=== PATIENT | female | born 1955 | race Caucasian/White ===

== ENCOUNTER 2017-01-28 07:28 | Day surgery (SDC) | payer BC ==
[2017-01-27 17:56] VITALS: BMI 27.4
[2017-01-28] MEDS ORDERED: PROPOFOL 20 ML ONE ×2 (07:39)
[2017-01-28 08:59] VITALS: TEMP 97.7
[2017-01-28 09:52] VITALS: BP 93/56; PULSE 66
--- NOTE | 2017-02-01 09:27 | PATH ---
Surgical Pathology Report Patient Name: KELLY FONSECA [facility]. Rec. #: [id number] /Age/Gender: 1955 (Age: 61) / F Account: [id number] Location: [facility]-ENDOSCOPY Taken: 01/28/2017 Received: 01/28/2017 Reported: 02/01/2017 Physicians: Benja Thakkar M.D. Specimen(s) Received BX HEPATIC FLEXURE Clinical History Rule out colon cancer Polyp, history of anal cancer Final Diagnosis COLON, HEPATIC FLEXURE, BIOPSY: TUBULAR ADENOMA. Electronically Signed Rex Castano M.D. Gross Description Received in formalin, labeled "hepatic flexure" is a garza, irregular portion of soft tissue measuring 0.2 cm. in greatest dimension. The specimen is submitted in toto in one cassette. 01/29/201701/29/2017
== END 2017-01-28 09:40 | disposition home or self-care (01) ==
LOC: FASU-ENDO 07:28
PROVIDERS: ATTEND Internal Medicine Gastroenterology
PROC: 0DBK8ZX Excision of Ascending Colon, Via Natural or Artificial Opening Endoscopic, Diagnostic (ICD-10-PCS; principal; 2017-01-28 08:28)
DX: Z85.048 Personal history of other malignant neoplasm of rectum, rectosigmoid junction, and anus (principal); D12.2 Benign neoplasm of ascending colon; Z98.0 Intestinal bypass and anastomosis status
CPT/HCPCS: 88305-TC

== ENCOUNTER 2018-10-26 10:48 | Day surgery (SDC) | payer OTHER, BC ==
[2018-10-25 15:24] VITALS: BMI 27.4
[2018-10-26] MEDS ORDERED: MIDAZOLAM HCL 2 MG/2 ML SINGLE DOSE VIAL ONE ×2 (11:48→12:16)
[2018-10-26] MEDS ORDERED: ROPIVACAINE HCL 0.5% 30ML VIAL ONE (11:48)
[2018-10-26] MEDS ORDERED: ceFAZolin SODIUM 1 GM VIAL IVPB ONE (12:32)
[2018-10-26] MEDS ORDERED: GUM MASTIC/STORAX/MSAL/ALCOHOL 1 DRP DROPSBTL MC ONE (13:23)
[2018-10-26 13:59] VITALS: TEMP 98
[2018-10-26 15:04] VITALS: BP 115/70; PULSE 68
[2018-10-26] MEDS ORDERED: ACETAMINOPHEN 325 MG TABLET (FP) PO PRN (15:17)
[2018-10-26] MEDS ORDERED: ONDANSETRON 4 MG/2 ML VIAL IVPUSH PRN (15:17)
[2018-10-26] MEDS ORDERED: oxyCODONE HCL 5 MG TABLET PO PRN (15:17)
[2018-10-26] MEDS ORDERED: LACTATED RINGERS SOLUTION 1,000 ML IV SCH (15:30)
--- NOTE | 2018-10-26 19:48 | OP ---
DATE OF OPERATION: 10/26/2018 PREOPERATIVE DIAGNOSIS: Displaced intraarticularradius fracture. POSTOPERATIVE DIAGNOSIS: Displaced intraarticular radius fracture. OPERATIVE PROCEDURE: Open reduction internal fixation displaced radius fracture with internal fixation of intraarticularfragments. SURGEON: Em Metzger M.D. ANESTHESIA: Regional and sedation. COMPLICATIONS: None. ESTIMATED BLOOD LOSS: Minimal. OPERATIONS MANAGER/COORDINATOR: Molly Avendano INDICATION FOR PROCEDURE: The patient is a 63-year-old female with the above findings, indicated for operative treatment. Risks, benefits, and alternatives were discussed with the patient at length. Proper informed consent was obtained. PROCEDURE: After proper identification of the patient and correct operative site, patient was brought to the operating room and placed supine on the operating room table, all bony prominences well padded. Sedation and regional anesthesia were given. Right upper extremity was prepped and draped in the usual sterile fashion. Intravenous antibiotics were given. Esmarch bandage to exsanguinate the right upper extremity. Tourniquet inflated to 250 mmHg. Longitudinal incision made over the volar aspect of the wrist in line with the flexor carpi radialis tendon. Incision taken sharply through the skin with blunt and sharp dissection of the subcutaneous tissues. Flexor carpi radialis tendon along with contents of the carpal canal was bluntly and gently retracted in an ulnarward direction for the remainder of the procedure. Pronator quadratus was divided and elevated off the distal radius. Displaced comminuted intraarticular fracture was noted; this was attempted to be reduced. However, the pull of the brachioradialis made this not possible, therefore a brachialis tenotomy was performed in the subperiosteal fashion. This allowed reduction of the fracture into satisfactory position, and this was then held with an Acumed, Acu-Loc plate and distal locking screws and proximal nonlocking screws. This achieved satisfactory reduction, and this was confirmed on radiographs including proper placement and sizing of all hardware. Scapholunate interval and distal radial joints were found to be stable. Wound was then repaired in layers including the pronator quadratus with 4-0 Vicryl and 4-0 Monocryl sutures. Sterile dressings and wrist splint were placed. The patient was reversed from anesthesia and brought to the recovery room in stable condition. She tolerated the procedure well. Laurent Castelan, the orthopaedic physician assistant, was integral throughout the procedure. Procedure could not have been performed without a skilled operative orthopaedic physician assistant. EM METZGER M.D. PANCHO/[id number]
== END 2018-10-26 15:04 | disposition home or self-care (01) ==
LOC: FASU 10:48
PROVIDERS: ATTEND Orthopaedic Surgery Hand Surgery
PROC: 0LN50ZZ Release Right Lower Arm and Wrist Tendon, Open Approach (ICD-10-PCS; 2018-10-26)
PROC: 0PSH04Z Reposition Right Radius with Internal Fixation Device, Open Approach (ICD-10-PCS; principal; 2018-10-26 12:52)
DX: S52.571A Other intraarticular fracture of lower end of right radius, initial encounter for closed fracture (principal); X58.XXXA Exposure to other specified factors, initial encounter; Y93.9 Activity, unspecified; Y92.9 Unspecified place or not applicable
CPT/HCPCS: 25290; 25609; C1713; 73110-TC-RT-FY